=== PATIENT | female | born 1955 | race Caucasian/White ===

== ENCOUNTER → 2016-09-21 | Day surgery (SDC) | payer MEDICARE, OTHER ==
[~2016-09-21] MED LIST: ACETAMINOPHEN PO; AMLODIPINE-BENA1 CA3 PO; AMLODIPINE-OLM1 EAC1 PO; AMOXICILLIN875 MG PO; ASPIR-TRIN325 MG; ASPIRINEC PO; BACTRIM DS TABL1 TA1 PO; BAYER ASPIRIN325 M1 PO; CALCIUM + D 6001 TA1 PO; CALCIUM 500 + D1 TAB PO; CALCIUM 600 + D1 TA1 PO; CALCIUM 600 +1 EAC1 PO; CERTAGEN PO; CIPRO PO; CYANOCOBAL1000 MCG/1 IJ; CYANOCOBAL1000 MCG/M INJ; DESYREL50 MG PO; EYE CAP PO; FIBER DIET1 TA1 PO; FISH OIL 1,0001 EAC3 PO; FISH OIL 1,001000 MG; FISH OIL 1,001000 MG PO; FISH OIL500 MG PO; FOLIC ACID PO; FOLIC ACID1 MG PO; HYDROCODON-ACE1 EAC5 PO; HYDROCODON-ACE1 EAC7 PO; I-CAPS AREDS S1 EACH PO; I-CAPS PO; I-CAPS WITH LU1 EACH PO; IBUPROFEN800 MG PO; ICAPS AREDS SO1 EACH PO; K-DUR10 MEQ PO; K-DUR20 ME2 DOB; KLOR-CON; KLOR-CON PO; LISINOPRIL PO; LOPRESSOR PO; LORTAB 5/500 TA1 TA2 PO; LORTAB 7.5-5001 TAB PO; LORTAB 7.51 TAB 7.5/ PO; LOTREL 10-20 MG1 CAP PO; LOTREL 10/20 CA1 CAP PO; LOTREL 10/20 MG1 CAP PO; METOPROLOL SUCC50 MG PO; MICRO-K10 MEQ PO; MIDRIN CAPSULE1 CA1 PO; MULTI VITAMIN1 EACH PO; MULTI-VITAMIN PO; MULTI-VITAMIN1 EAC1 PO; MULTIVITAMIN1 UDCAP PO; MULTIVITAMINS1 EAC2 PO; NEURONTIN PO; OMEGA 3 FISH OI1 CAP PO; OMEGA 3 FISH1 CAP.EC PO; OMEPRAZOLE20 M1 PO; OMEPRAZOLE20 M2 PO; OYSTER CALCIUM500 MG PO; PAXIL PO; PAXIL40 MG PO; PERCOCET 5-3251 TAB PO; PRINIVIL40 MG PO; RECLAST 55 MG/100 M; RECLAST 55 MG/100 M IV; ROBITUSSIN15 MG PO; SIMVASTATIN40 MG PO; TIZANIDINE HCL4 M1 PO; TOPROL XL50 MG PO; VICODIN 5-3001 EACH PO; VICODIN 5/500 T1 TAB PO; VIT B12; VITAMIN B SUBQ; VITAMIN B12 SUBQ; VITAMIN D1000 UNI1 PO; VITAMIN D400 UNI2 PO; ZANAFLEX4 M1 PO; ZITHROMAX PO; ZOCOR PO
--- NOTE | ~2016-09-21 | OR ---
Unit #: [id number] #: [id number] Patient: LILY DUNLAP [id number] [address] [address] [id number] O MR#: [id number] NAME: LILY DUNLAP ROOM: Date of Procedure: 09/21/2016 Admission Date: 09/21/2016 Surgeon: Ananda Mcfadden M.D. : 1955 Attending Physician: Ananda Mcfadden M.D. Referring Physician: Ananda Mcfadden M.D. Primary Care Physician: Logan Delgadillo M.D. OPERATIVE REPORT PREOPERATIVE DIAGNOSES 1. Screening colonoscopy. 2. Personal history of polyps. POSTOPERATIVE DIAGNOSES 1. Screening colonoscopy. 2. Personal history of polyps. PROCEDURE PERFORMED Colonoscopy to cecum. ANESTHESIA Monitored anesthesia care. FINDINGS The patient was found to have scattered rhoades-diverticular disease. Mild internal hemorrhoids were also found. SPECIMENS None. COMPLICATIONS None apparent. CONDITION The patient tolerated the procedure well. INDICATIONS FOR PROCEDURE The patient is a 61-year-old white female who presents at this time for screening colonoscopy. She has a personal history of colonic polyps. Her last endoscopy was 3 to 4 years ago. DESCRIPTION OF PROCEDURE After obtaining informed consent, the patient was brought to the endoscopy suite and after adequate monitored anesthesia care, had the colonoscope placed through the anus and slowly advanced to the level of the cecum without difficulty with the lumen always in view. The cecum was normal as was the ileocecal valve. The patient had scattered rhoades-diverticular disease throughout the colon, not very numerous in any one area. Other than this, there was no abnormality seen in the ascending colon, hepatic flexure, transverse colon, splenic flexure, descending colon, sigmoid Unit #: [id number] #: [id number] Patient: LILY DUNLAP colon, or rectum. On retroflexing in the rectum to the anorectal junction, there were some lfct-uf-wzzaefwy internal hemorrhoids. The scope was removed without difficulty. The patient tolerated the procedure well and went from the endoscopy suite to recovery area in stable condition. RECOMMENDATIONS Diverticular sheet given. High-fiber diet, lots of liquids, tucks or wipes p.r.n. Follow up as needed. Dictated by... Alpesh Smith/vashti TD: 09/22/2016 08:04 JOB #: [id number] [facility] OPERATIVE REPORT X Ananda Mcfadden MD X PROCEDURE OPERATIVE NOTE
== END | disposition home or self-care (01) ==
LOC: COPS 10:07
DX: Z12.11 Encounter for screening for malignant neoplasm of colon (principal); K57.30 Diverticulosis of large intestine without perforation or abscess without bleeding; K64.8 Other hemorrhoids; N39.3 Stress incontinence (female) (male); I10 Essential (primary) hypertension; M19.90 Unspecified osteoarthritis, unspecified site; Z86.010 Personal history of colon polyps; Z98.41 Cataract extraction status, right eye; Z98.42 Cataract extraction status, left eye; Z87.01 Personal history of pneumonia (recurrent); Z87.19 Personal history of other diseases of the digestive system; Z90.89 Acquired absence of other organs; Z90.49 Acquired absence of other specified parts of digestive tract; Z88.8 Allergy status to other drugs, medicaments and biological substances; Z98.84 Bariatric surgery status; Z86.2 Personal history of diseases of the blood and blood-forming organs and certain disorders involving the immune mechanism; Z96.619 Presence of unspecified artificial shoulder joint; Z79.891 Long term (current) use of opiate analgesic; Z79.52 Long term (current) use of systemic steroids; Z79.899 Other long term (current) drug therapy
CPT/HCPCS: 82947

== ENCOUNTER 2016-10-25 23:30 | Emergency (ER) | payer MEDICARE, OTHER ==
--- NOTE | ~2016-10-25 | CR116 ---
[facility]. [facility] A Service of [facility] RADIOLOGY TEXT RESULTS PATIENT: LILY DUNLAP LOCATION: SED : 53 UNIT #: [id number] AGE: [address]: Nicolas Huynh MD SEX: F ORDER DR: [id number] [address] [address] [id number] E MR#: [id number] Acc #: [id number] NAME: LILY DUNLAP : 1955 SEX: F STUDY DATE/TIME: 10/26/2016 1:59 UNIT: SED ROOM: STUDY DESCRIPTION: CR Finger 2 View Thumb Lt Attending Physician: Nicolas Huynh M.D. Ordering Physician: Nicolas Huynh M.D. MEDICAL IMAGING REPORT This report is preliminary unless electronic signature is present. EXAM Left thumb INDICATIONS Reduction of dislocation. FINDINGS 3 views of the left thumb were obtained. The IP joint dislocation has been reduced. The small fragment of bone is still visible adjacent to the proximal end of the distal phalanx. Dictated by... Jarod Young M.D. THIS IS AN ELECTRONICALLY VERIFIED REPORT Jarod Young M.D. at 10/26/2016 5:51 AM URIEL/aldo TD: 10/26/2016 03:35 JOB #: [id number] MEDICAL IMAGING REPORT Page 1 of 1
--- NOTE | ~2016-10-25 | CR116 ---
[facility]. [facility] A Service of [facility] & [facility] RADIOLOGY TEXT RESULTS PATIENT: LILY DUNLAP LOCATION: SED : 53 UNIT #: [id number] AGE: [address]: Nicolas Huynh MD SEX: F ORDER DR: [id number] [address] [address] [id number] E MR#: [id number] Acc #: [id number] NAME: LILY DUNLAP : 1955 SEX: F STUDY DATE/TIME: 10/26/2016 1:10 UNIT: SED ROOM: STUDY DESCRIPTION: CR Finger 2 View Thumb Lt Attending Physician: Nicolas Huynh M.D. Ordering Physician: Nicolas Huynh M.D. MEDICAL IMAGING REPORT This report is preliminary unless electronic signature is present. EXAM Left thumb INDICATIONS Left thumb pain after fall this evening. FINDINGS 3 views of the left thumb were obtained. There is a fracture dislocation involving the distal phalanx. The bone is displaced in a volar fashion and there is a small apparent bone fragment along the dorsal margin measuring 4 mm in diameter, and there is also degenerative change at the first carpometacarpal joint. IMPRESSION 1. There is a partial dislocation at the IP joint of the thumb with the distal phalanx having moved toward the volar surface, and there is a 4-mm fragment of bone that is displaced from the dorsal proximal margin of the distal phalanx. Dictated by... Jarod Young M.D. THIS IS AN ELECTRONICALLY VERIFIED REPORT Jarod Young M.D. at 10/26/2016 5:51 AM URIEL/aldo TD: 10/26/2016 02:10 JOB #: [id number] MEDICAL IMAGING REPORT Page 1 of 1
[~2016-10-25 23:30] MED LIST changes: -AMLODIPINE-OLM1 EAC1 PO; -CALCIUM 600 +1 EAC1 PO; -EYE CAP PO; -FISH OIL 1,0001 EAC3 PO; -MULTI VITAMIN1 EACH PO; -NEURONTIN PO; -VITAMIN B12 SUBQ
[2016-12-11] MEDS ORDERED: NEURONTIN PO (10:28)
[2016-12-11] MEDS ORDERED: HYDROCODON-ACE1 EAC5 PO (11:27)
[2016-12-11] MEDS ORDERED: PAXIL40 MG PO (12:42)
[2016-12-11] MEDS ORDERED: TOPROL XL50 MG PO (12:42)
[2016-12-11] MEDS ORDERED: SIMVASTATIN40 MG PO (12:43)
[2016-12-11] MEDS ORDERED: TIZANIDINE HCL4 M1 PO (12:43)
[2016-12-11] MEDS ORDERED: OMEPRAZOLE20 M1 PO (12:44)
[2016-12-11] MEDS ORDERED: FOLIC ACID PO (12:44)
[2016-12-11] MEDS ORDERED: VITAMIN B12 SUBQ (13:43)
[2016-12-11] MEDS ORDERED: FISH OIL 1,0001 EAC3 PO (13:45)
[2016-12-11] MEDS ORDERED: AMLODIPINE-OLM1 EAC1 PO (13:46)
[2016-12-11] MEDS ORDERED: MULTI VITAMIN1 EACH PO (15:22)
[2016-12-11] MEDS ORDERED: CALCIUM 600 +1 EAC1 PO (15:24)
[2016-12-11] MEDS ORDERED: EYE CAP PO (16:27)
== END 2016-10-26 02:28 | disposition home or self-care (01) ==
LOC: SED 23:30
DX: S62.522A Displaced fracture of distal phalanx of left thumb, initial encounter for closed fracture (principal); I10 Essential (primary) hypertension; E78.5 Hyperlipidemia, unspecified; D64.9 Anemia, unspecified; W01.0XXA Fall on same level from slipping, tripping and stumbling without subsequent striking against object, initial encounter; Y92.009 Unspecified place in unspecified non-institutional (private) residence as the place of occurrence of the external cause
CPT/HCPCS: 26742; 26755; 73140; 99283

== ENCOUNTER → 2016-10-31 | Day surgery (SDC) | payer MEDICARE, OTHER ==
[~2016-10-31] MED LIST changes: +AMLODIPINE-OLM1 EAC1 PO; +CALCIUM 600 +1 EAC1 PO; +EYE CAP PO; +FISH OIL 1,0001 EAC3 PO; +MULTI VITAMIN1 EACH PO; +NEURONTIN PO; +VITAMIN B12 SUBQ
--- NOTE | ~2016-10-31 | OR ---
Unit #: [id number] #: [id number] Patient: LILY DUNLAP [id number] [address] [address] [id number] O MR#: [id number] NAME: LILY DUNLAP ROOM: Date of Procedure: 10/31/2016 Admission Date: 10/31/2016 Surgeon: Marcelo Finch M.D. : 1955 Attending Physician: Marcelo Finch M.D. Primary Care Physician: Logan Delgadillo M.D. OPERATIVE REPORT PREOPERATIVE DIAGNOSES Back pain, radiculopathy, degenerative lumbar disk disease with myelopathy. POSTOPERATIVE DIAGNOSES Back pain, radiculopathy, degenerative lumbar disk disease with myelopathy. PROCEDURE PERFORMED Lumbar epidural steroid injection with fluoroscopic guidance for needle localization. INDICATIONS FOR PROCEDURE The patient is a 61-year-old female with return of back and right lower extremity pain due to known lower lumbar disk pathology. She was treated back last about 4-1/2 months ago with epidural steroids, it did extremely well. She recently had resurgence of the pain. She also has lower thoracic compression fracture that caused stenosis. She was last treated those pains about 5 to 6 months ago and used to do fine. DESCRIPTION OF PROCEDURE The patient was placed in a seated position. Standard monitors were applied. Sterile prep and drape of the lumbar area was performed. The skin at the L5 level was localized with 1% lidocaine. An 18-gauge Hustead needle was then advanced via loss of resistance technique and fluoroscopic guidance in toward the epidural space. After confirming proper positioning with fluoroscopy and radiographic contrast, 80 mg of Depo-Medrol and 4 mL of 0.125% bupivacaine were deposited. The patient tolerated the procedure otherwise well and was discharged to the recovery room in stable condition. Dictated by... Alpesh Lou/vashti TD: 10/31/2016 22:15 JOB #: [id number] Unit #: [id number] #: [id number] Patient: LILY DUNLAP OPERATIVE REPORT Page 1 of 1 X Marcelo Finch MD X PROCEDURE OPERATIVE NOTE
== END | disposition home or self-care (01) ==
LOC: CCSC 10:06
DX: M51.16 Intervertebral disc disorders with radiculopathy, lumbar region (principal); M51.06 Intervertebral disc disorders with myelopathy, lumbar region; I10 Essential (primary) hypertension; M19.90 Unspecified osteoarthritis, unspecified site
CPT/HCPCS: 82947; J1040; J2250

== ENCOUNTER → 2016-12-11 | Outpatient (CLI) | payer MEDICARE, OTHER | END | disposition home or self-care (01) | LOC: CSSDAY 13:00 | DX: M81.0 Age-related osteoporosis without current pathological fracture (principal) | CPT/HCPCS: 96374; J3489 ==

== ENCOUNTER → 2016-12-14 | Day surgery (SDC) | payer MEDICARE, OTHER ==
--- NOTE | ~2016-12-14 | OR ---
Unit #: [id number] #: [id number] Patient: LILY DUNLAP [id number] [address] [address] [id number] O MR#: [id number] NAME: LILY DUNLAP ROOM: Date of Procedure: 12/14/2016 Admission Date: 12/14/2016 Surgeon: Marcelo Finch M.D. : 1955 Attending Physician: Marcelo Finch M.D. Primary Care Physician: Logan Delgadillo M.D. OPERATIVE REPORT PREOPERATIVE DIAGNOSES Back pain, radiculopathy, degenerative lumbar disk disease. PROCEDURE PERFORMED Lumbar epidural steroid injection with fluoroscopic guidance for needle localization. INDICATIONS FOR PROCEDURE The patient is a 61-year-old female with return of back and right lower extremity pain. She has significantly known L4-L5 and L5-S1 disk and spine pathology. She did excellent with epidural steroids in the past. Two injections gave her about 4 months of good improvement. Single injection is ultimate and with rapid return of the pain. Based on good prior response, pathology, symptomatology, and treatment options, we are going to proceed with a repeat injection today. The patient also had some increase in her pain at the thoracolumbar junction due to compression fractures with spinal stenosis. Last injections were done there 7 months ago and she did quite well. We will monitor that that if needed. DESCRIPTION OF PROCEDURE The patient was placed in a seated position. Standard monitors were applied. Sterile prep and drape of the lumbar area was performed. The skin then at the L4-L5 level was localized with 1% lidocaine. An 18-gauge Relaytead needle was then advanced via loss of resistance technique and fluoroscopic guidance in toward the epidural space. After confirming proper positioning with fluoroscopy and radiographic contrast, 80 mg of Depo-Medrol and 4 mL of 0.125% bupivacaine were deposited. The patient tolerated the procedure otherwise well and was discharged to the recovery room in stable condition. Dictated by... Alpesh Lou/vashti TD: 12/14/2016 22:57 JOB #: [id number] Unit #: [id number] #: [id number] Patient: LILY DUNLAP OPERATIVE REPORT Page 1 of 1 X Marcelo Finch MD X PROCEDURE OPERATIVE NOTE
== END | disposition home or self-care (01) ==
LOC: CCSC 09:01
DX: M51.16 Intervertebral disc disorders with radiculopathy, lumbar region (principal); M19.90 Unspecified osteoarthritis, unspecified site; I10 Essential (primary) hypertension
CPT/HCPCS: 82947; J1040; J2250

== ENCOUNTER → 2017-02-05 | Outpatient (CLI) | payer MEDICARE, OTHER ==
--- NOTE | ~2017-02-05 | CT2 ---
[facility] A Service of [facility] & [facility] RADIOLOGY TEXT RESULTS PATIENT: LILY DUNLAP LOCATION: [facility] : 53 UNIT #: [id number] AGE: [address]: Logan Delgadillo MD SEX: F ORDER DR: [id number] [address] [address] [id number] O MR#: [id number] Acc #: [id number] NAME: LILY DUNLAP : 1955 SEX: F STUDY DATE/TIME: 02/05/2017 12:00 UNIT: [facility] ROOM: STUDY DESCRIPTION: CT Abd and Pelv W Cont Attending Physician: Logan Delgadillo M.D. Referring Physician: Logan Delgadillo M.D. Ordering Physician: Logan Delgadillo M.D. Primary Care Physician: Logan Delgadillo M.D. MEDICAL IMAGING REPORT This report is preliminary unless electronic signature is present. EXAM CT of the abdomen and pelvis with contrast INDICATIONS Multiple hernias over the past 10 years, patient reports bilateral lower abdominal pain and worsening pain at the hernia sites over the past [address] images were obtained from the dome of the diaphragm through the symphysis pubis following the administration of oral and intravenous contrast material. This CT exam was performed with one or more of the following radiation dose reduction techniques: Automatic exposure control, adjustment of mA and/or kV according to patient size, and iterative reconstruction. FINDINGS Images through the lung bases demonstrate some bibasilar atelectasis versus scarring. Patient is noted to have intrahepatic biliary dilatation. Similar findings were present in November 2014 but have progressed, as the common bile duct now measures up to 2 cm, previously 1.9 cm. I do not see any pancreatic ductal dilatation. The pancreas itself is very atrophic. No focal hepatic lesions are seen. Spleen appears unremarkable. Patient is status post gastrojejunostomy without any evidence of obstruction. Adrenal glands are within normal limits. Gallbladder is surgically absent. Patient has a punctate, nonobstructing stone within the inferior pole of the right kidney, no stones are seen on the left on these contrast-enhanced images. There is hepatomegaly with the liver measuring up to 18.2 cm in craniocaudal dimensions. This patient has an extremely large ventral hernia which basically involves the entire anterior abdominal wall. I really do not think it has significantly changed in size. It does contain the majority of the colon [facility] A Service of [facility] RADIOLOGY TEXT RESULTS PATIENT: LILY DUNLAP LOCATION: [facility] : 53 UNIT #: [id number] AGE: [address]: Logan Delgadillo MD SEX: F ORDER DR: as well as multiple loops of small bowel. There is no evidence of obstruction. Urinary bladder is within normal limits. Uterus is retroflexed. There is compression deformity noted at T11 and L1. The deformity at L1 is new when compared to the prior examination and there is retropulsion of the fragments into the spinal canal. This fracture is age indeterminate. IMPRESSION 1. As was seen on the prior study, there is a large, complex ventral hernia, which contains the majority of the colon as well as multiple loops of small bowel. Hernia sac measures up to about 36.9 cm in diameter and the actual defect within the abdominal wall measures about 14.8 cm in diameter. Again, there is significant loss of abdominal domain, with much of the bowel contained within this hernia sac. No convincing evidence of obstruction is seen on these images, 2. Intra- and extrahepatic biliary dilatation, which has increased when compared to the prior exam. Some of this may reflect some postcholecystectomy change but certainly, correlation with liver function tests is recommended. 3. Hepatomegaly. 4. Also noted but not mentioned in the report is a tiny, low-attenuation lesion within the spleen, which likely reflects a benign lesion, suggest as a cyst. 5. Punctate, nonobstructing stone seen within the inferior pole of the right kidney. 6. Compression deformity noted at L1, which is new when compared to the prior examination, it is age indeterminate. Correlation with history and point tenderness is suggested. MRI or bone scan could be considered for further evaluation if acuity is uncertain. Patient does have retropulsion of the fragments into the spinal canal. An additional compression deformity at T11 is stable in appearance when compared to the prior study. 7. Changes of prior gastrojejunostomy without any evidence of obstruction. Please see the body of the report for any other additional incidental findings. Dictated by... Licha Garnett M.D. THIS IS AN ELECTRONICALLY VERIFIED REPORT Licha Garnett M.D. at 02/07/2017 4:57 PM AFF/psc TD: 02/06/2017 00:09 JOB #: [id number] [facility] A Service of [facility] RADIOLOGY TEXT RESULTS PATIENT: LILY DUNLAP LOCATION: [facility] : 53 UNIT #: [id number] AGE: [address]: Logan Delgadillo MD SEX: F ORDER DR: MEDICAL IMAGING REPORT Page 1 of 1
[2017-02-05 10:20] LABS: POC - CREATININE 0.61 mg/dL (0.44-1.03); POC - GFR >60.0 mL/min (>60)
== END | disposition home or self-care (01) ==
LOC: SCT 09:53
PROVIDERS: Family Medicine
DX: R10.9 Unspecified abdominal pain (principal); E16.2 Hypoglycemia, unspecified; K43.9 Ventral hernia without obstruction or gangrene; K83.8 Other specified diseases of biliary tract; R16.0 Hepatomegaly, not elsewhere classified; N20.0 Calculus of kidney; Z88.8 Allergy status to other drugs, medicaments and biological substances; Z98.890 Other specified postprocedural states
CPT/HCPCS: 74177; 82565; Q9967

== ENCOUNTER → 2017-03-07 | Outpatient (CLI) | payer MEDICARE, OTHER ==
--- NOTE | ~2017-03-07 | MR113 ---
[facility] A Service of [facility] & [facility] RADIOLOGY TEXT RESULTS PATIENT: LILY DUNLAP LOCATION: [facility] : 53 UNIT #: [id number] AGE: [address]: Marcelo Finch MD SEX: F ORDER DR: [id number] [place] [id number] O MR#: [id number] Acc #: [id number] NAME: LILY DUNLAP : 1955 SEX: F STUDY DATE/TIME: 03/07/2017 10:27 UNIT: [facility] ROOM: STUDY DESCRIPTION: MR Lumbar Wo Contrast Attending Physician: Marcelo Finch M.D. Referring Physician: Marcelo Finch M.D. Ordering Physician: Marcelo Finch M.D. Primary Care Physician: Logan Delgadillo M.D. MRI CENTER REPORT This report is preliminary unless electronic signature is present. EXAM Lumbar spine MRI without contrast 03/07/2017 PROCEDURE Routine unenhanced lumbar spine MRI. COMPARISON Prior lumbar spine MRI dated 10/25/2015. CLINICAL HISTORY Low back pain radiating to right side for several years but worsened over the past 18 months. FINDINGS No new or acute fracture is seen, and marrow edema at L1 on the study of October 25, 2015 has resolved. Healing at the L1 fracture has resulted in retrolisthesis of T12 relative to L2, which is mostly new since the prior study. The distal cord and conus are normal in position and appearance. Slight anterolisthesis at 10-11 and slight retrolisthesis at 11-12 is unchanged since the prior study. There is mild degenerative marrow signal change around the 2-3 disc but that is unchanged since the prior study as well. The paraspinous tissues are unremarkable. At the L1 level, retrolisthesis and old healed bone bony retropulsion result in moderate to severe canal stenosis, and moderate bilateral 12/1 foraminal stenosis. At 1-2 at the level of the disc, there is no canal stenosis and there is no 1-2 foraminal stenosis. At 2-3, there is no more than borderline to mild canal narrowing and mild bilateral foraminal narrowing. At 3-4, there is borderline to mild foraminal narrowing without canal stenosis. [facility]. [facility] A Service of [facility] RADIOLOGY TEXT RESULTS PATIENT: LILY DUNLAP LOCATION: [facility] : 53 UNIT #: [id number] AGE: [address]: Marcelo Finch MD SEX: F ORDER DR: At 4-5, there is mild canal stenosis, not significantly changed since the prior study and there is mild bilateral foraminal stenosis. At 5-1, there is no canal stenosis and there is mild or tlmi-ni-jglvrmnn left and mild right foraminal stenosis also unchanged. IMPRESSION Extensive chronic changes without acute abnormality and no acute fracture seen on the current study. However, the fracture at L1 seen on the prior study has healed with bony retropulsion and in fact 12-1 retrolisthesis with the result being at least moderate if not moderate to severe canal stenosis at the level of the L1 upper endplate. No other substantial change is seen when compared to 10/25/2015. Dictated by... Jordi Deluca M.D. THIS IS AN ELECTRONICALLY VERIFIED REPORT Jordi Deluca M.D. at 03/09/2017 4:06 PM DARYN/william TD: 03/08/2017 07:28 JOB #: [id number] MRI CENTER REPORT Page 1 of 1
== END | disposition home or self-care (01) ==
LOC: SMRI 09:53
DX: M54.16 Radiculopathy, lumbar region (principal); M43.16 Spondylolisthesis, lumbar region; M89.9 Disorder of bone, unspecified
CPT/HCPCS: 72148